=== PATIENT | female | born 1970 | race Caucasian/White ===

== ENCOUNTER 2016-07-23 11:38 | Emergency (ER) | payer SELFPAY ==
[2016-07-23 13:21] VITALS: BP 126/84
--- NOTE | 2016-07-23 13:36 | UC ---
Complaint Female HPI - HPI Summary HPI Summary: pt presents with c/o lower pelvic and back discomfort that began 1 week ago. Pt reports urgency with urination and has history of kidney stones but deines recent kidney stones or flank flank. Pt reports that she has had occasional episode of stress incontinence with coughing, sneezing since onset of symptoms 1 week ago. - History Of Current Complaint Chief Complaint: UCGU Stated Complaint: ABD PAIN,URINARY Time Seen by Provider: 07/23/16 13:27 Hx Obtained From: Patient Hx Last Menstrual Period: 2008 ?: No Onset/Duration: Gradual Onset, Lasting Days - 7 Timing: Constant Severity Initially: Mild Severity Currently: Mild Character: Dull Aggravating Factor(s): Coughing, Urination Associated Signs And Symptoms: Positive: Back Pain - Allergies/Home Medications Allergies/Adverse Reactions: Allergies Allergy/AdvReac Type Severity Reaction Status Date / Time Sulfa Antibiotics Allergy Rash Verified 07/23/16 13:22 PMH/Surg Hx/FS Hx/Imm Hx Previously Healthy: Yes GI/ History Of: Reports: Kidney Stones - Surgical History Surgical History: Yes Surgery Procedure, Year, and Place: hysterectomy. deviated septum. tubal ligation. R arm fx- repair - Family History Known Family History: Positive: Respiratory Disease - asthma - Social History Alcohol Use: None Substance Use Type: None Smoking Status (MU): Never Smoked Tobacco Review of Systems Constitutional: Negative Skin: Negative Eyes: Negative ENT: Negative Respiratory: Negative Cardiovascular: Negative Gastrointestinal: Abdominal Pain - lower abdomen/pelvic Genitourinary: Urgency, Other - incontinence/stress Motor: Negative Neurovascular: Negative Musculoskeletal: Myalgia - low back Neurological: Negative Psychological: Negative All Other Systems Reviewed And Are Negative: Yes Physical Exam Triage Information Reviewed: Yes Appearance: Well-Appearing Vital Signs: Initial Vital Signs Temp 98.2 F 07/23/16 13:15 Pulse 99 07/23/16 13:15 Resp 18 07/23/16 13:15 BP 126/84 07/23/16 13:15 Eye Exam: Normal Neck exam: Normal Respiratory Exam: Normal Cardiovascular Exam: Normal Abdomen Description: Positive: Other: - pelvic discomfort Musculoskeletal Exam: Normal Neurological Exam: Normal Psychological Exam: Normal Skin Exam: Normal Complaint Female Dx - Differential Dx/Diagnosis Differential Diagnosis/HQI/PQRI: Urinary Tract Infection Provider Diagnoses: UTI. Hematuria Discharge - Discharge Plan Condition: Stable Disposition: HOME Prescriptions: Cephalexin CAP* [Keflex 500 CAP*] 500 mg PO Q12H #10 cap Phenazopyridine TAB* [Pyridium 100 mg TAB*] 100 mg PO TID #6 tab Patient Education Materials: Urinary Tract Infection in Women (ED) Referrals: [facility] [place] PHYSICIAN REFERRAL [Outside] Non Staff,Doctor [Primary Care Provider] - (Please follow up with your PCP or return to clinic as needed. )
== END 2016-07-23 13:45 | disposition home or self-care (01) ==
LOC: UCCORT 11:38
DX: N39.0 Urinary tract infection, site not specified (principal); R31.9 Hematuria, unspecified
CPT/HCPCS: 81003; 87077; 87086; 87186; 99212; G0463

== ENCOUNTER 2016-09-02 11:13 | Emergency (ER) | payer SELFPAY ==
[2016-09-02 12:13] VITALS: BP 117/68
--- NOTE | 2016-09-02 13:11 | UC ---
Throat Pain/Nasal Cristiano HPI - HPI Summary HPI Summary: Pt presents with c/o sore throat and tonsill swelling. - History of Current Complaint Chief Complaint: UCRespiratory Stated Complaint: SORE THROAT Time Seen by Provider: 09/02/16 12:12 Hx Obtained From: Patient Hx Last Menstrual Period: ?: No Onset/Duration: Gradual Onset, Lasting Days Severity: Mild Pain Intensity: 7 Pain Scale Used: 0-10 Numeric Associated Signs & Symptoms: Positive: Dysphagia, Sinus Discomfort Related History: Seasonal Allergies - Allergies/Home Medications Allergies/Adverse Reactions: Allergies Allergy/AdvReac Type Severity Reaction Status Date / Time Sulfa Antibiotics Allergy Rash Verified 09/02/16 12:13 Home Medications: Home Medications Biotin 1 mg PO DAILY 09/02/16 [History Confirmed 09/02/16] Multivitamins/Minerals TAB* [Thera M Plus TAB*] 1 tab PO DAILY 09/02/16 [ History Confirmed 09/02/16] PMH/Surg Hx/FS Hx/Imm Hx Previously Healthy: Yes - Surgical History Surgical History: Yes Surgery Procedure, Year, and Place: hysterectomy. deviated septum. tubal ligation. R arm fx- repair - Family History Known Family History: Positive: Respiratory Disease - asthma - Social History Lives: With Family Alcohol Use: None Substance Use Type: None Smoking Status (MU): Never Smoked Tobacco Review of Systems Constitutional: Chills, Fatigue Skin: Negative Eyes: Negative ENT: Sore Throat Respiratory: Negative Cardiovascular: Negative Gastrointestinal: Negative Genitourinary: Negative Motor: Negative Neurovascular: Negative Musculoskeletal: Negative Neurological: Headache Psychological: Negative All Other Systems Reviewed And Are Negative: Yes Physical Exam Triage Information Reviewed: Yes Appearance: Ill-Appearing Vital Signs: Initial Vital Signs Temp 97.5 F 09/02/16 12:06 Pulse 74 09/02/16 12:06 Resp 18 09/02/16 12:06 BP 117/68 09/02/16 12:06 Pulse Ox 98 09/02/16 12:06 Eye Exam: Normal ENT Exam: Other ENT: Positive: Tonsillar swelling, Other: - maxillary sinus pain Neck exam: Normal Respiratory Exam: Normal Cardiovascular Exam: Normal Musculoskeletal Exam: Normal Neurological Exam: Normal Psychological Exam: Normal Skin Exam: Normal Throat Pain/Nasal Course/Dx - Differential Dx/Diagnosis Differential Diagnosis/HQI/PQRI: Sinusitis, Tonsillitis, URI Provider Diagnoses: tonsillitis Discharge - Discharge Plan Condition: Stable Disposition: HOME Prescriptions: Amoxicillin CAP* [Amoxicillin 500 MG CAP*] 500 mg PO Q12H #14 cap Patient Education Materials: Tonsillitis (ED) Referrals: [facility] – [place] PHYSICIAN REFERRAL [Outside] Non Staff,Doctor [Primary Care Provider] - If Needed
== END 2016-09-02 12:49 | disposition home or self-care (01) ==
LOC: UCCORT 11:13
DX: J03.90 Acute tonsillitis, unspecified (principal)
CPT/HCPCS: 87651; 99212; G0463